=== PATIENT | female | born 1970 | race Caucasian/White ===

== ENCOUNTER → 2016-05-26 15:59 | Outpatient (CLI) | payer BC | END | disposition home or self-care (01) | LOC: D.MAMMO 10:30 | DX: Z12.31 Encounter for screening mammogram for malignant neoplasm of breast (principal) ==

== ENCOUNTER → 2016-06-30 16:53 | Outpatient (CLI) | payer MEDICAID | END | disposition home or self-care (01) | LOC: D.MAMMO 06-21 14:30 → D.US 06-21 15:00 → D.MAMMO 10:30 | DX: R92.8 Other abnormal and inconclusive findings on diagnostic imaging of breast (principal) ==

== ENCOUNTER 2018-04-20 11:24 | Emergency (ER) | payer OTHER ==
[~2018-04-20] VITALS: Ht 180.3 cm; Wt 112.7 kg
[2018-04-20 11:46] VITALS: Ht 180.3 cm; Wt 112.7 kg
[2018-04-20 14:43] LABS: BASOPHILS 0.5 % (0-2); EOSINOPHILS 2.9 % (0-7); HEMATOCRIT 35.4 % (36.0-48.0); HEMOGLOBIN 11.7 g/dL (12-16); IMMATURE GRANULOCYTES 0.2 % (0-5); LYMPHOCYTES 30.5 % (15-50); MCH 28.3 pg (26.0-34.0); MCHC 33.1 g/dL (31.0-37.0); MCV 85.7 fL (80.0-100.0); MONOCYTES 4.9 % (2-11); PLATELET COUNT 187 10x3/uL (130-400); RBC 4.13 10x6/uL (4.00-5.40); RDW 13.7 % (11.5-14.5); WBC 6.5 10x3/uL (4.8-10.8)
[2018-04-20 14:52] LABS: ALBUMIN 3.6 g/dL (3.4-5.0); ALKALINE PHOSPHATASE 76 U/L (46-116); ALT (SGPT) 22 U/L (10-68); BILIRUBIN - TOTAL 0.63 mg/dL (0.2-1.3); CALC OSMOLALITY 287 mosm/kg (275-300); CALCIUM 8.9 mg/dL (8.5-10.1); CARBON DIOXIDE 30.2 mmol/L (21.0-32.0); CHLORIDE - SERUM 103 mmol/L (98-107); CREATININE - SERUM 0.6 mg/dL (0.6-1.3); GLUCOSE 193 mg/dL (74-106); PROTEIN - SERUM 7.2 g/dL (6.4-8.2); SODIUM 143 mmol/L (136-145); UREA NITROGEN 7 mg/dL (7-18); eGFR NON AFRICAN AMERICAN > 90 mL/min (90-120)
[2018-04-20] MEDS ORDERED: BACLOFEN20 M1 PO (16:02)
[2018-04-20] MEDS ORDERED: VOLTAREN75 MG PO (16:02)
[2018-04-20 16:27] VITALS: BP 118/80
== END 2018-04-20 16:44 | disposition home or self-care (01) ==
LOC: D.ER 11:24
PROVIDERS: Family Medicine
DX: M54.2 Cervicalgia (principal)

== ENCOUNTER → 2018-06-13 16:31 | Outpatient (CLI) | payer OTHER ==
[2018-04-20 11:46] VITALS: BMI 34.6
[~2018-06-13 16:31] MED LIST: BACLOFEN20 M1 PO; VOLTAREN75 MG PO
== END | disposition home or self-care (01) ==
LOC: D.MAMMO 10:00
PROVIDERS: ATTEND Emergency Medicine
DX: Z12.31 Encounter for screening mammogram for malignant neoplasm of breast (principal)

== ENCOUNTER → 2018-07-12 08:19 | Outpatient (CLI) | payer OTHER ==
[2018-04-20 11:46] VITALS: BMI 34.6
[~2018-07-12 08:19] MED LIST changes: +ALPHALIPOIC ACID; +ASTAXANTHIN; +BAYER CHEWABLE81 MG PO; +CBD OIL; +GLUCOPHAGE500 MG PO; +VITAMIN B-12500 MCG PO
[2018-08-01 08:47] VITALS: BMI 34.6
== END | disposition home or self-care (01) ==
LOC: D.HCCARDIO 08:19
PROVIDERS: ATTEND Internal Medicine Cardiovascular Disease
DX: I20.9 Angina pectoris, unspecified (principal)

== ENCOUNTER 2018-08-01 07:32 | Outpatient (CLI) | payer OTHER ==
[~2018-08-01] VITALS: Ht 180.3 cm; Wt 112.7 kg
--- NOTE | ~2018-08-01 | HEMODYNAMI ---
PATIENT:DU ZHANG MEDICAL RECORD: [id number] : 66 LOCATION:[facility] ADMISSION DATE: 08/01/18 Generatedon:08/01/201810:54 Patient name: DU ZHANG Patient #: [id number] SSN: D OB: 1970 Date of study: 08/01/2018 Page: Of Hemodynamic Procedure Report Patient Data Patient Demographics Procedure consent was obtained First Name: DU Gender: Female Last Name: VICENTE : 1970 Middle Initial: LORETTA Age: 48 year(s) Patient #: [id number] Race: Unknown Additional ID: [id number] Contact details [address]: [address] [place] [address] [address] State: [place] City: [place] Zip code: [address] Admission Admission Data Admission Date: 08/01/2018 Admission Time: 7:32 Procedure Procedure Types Cath Procedure Diagnostic Procedure LHC LHC w/Coronaries Procedure Description Procedure Date Procedure Date: 08/01/2018 Procedure Start Time: 10:39 Procedure End Time: 10:53 Procedure Staff Name Function Андрей Dong MD Performing Physician Boston Bee RT Monitor Stefania Macedo RT Scrub Ro Zhou RN Nurse Procedure Data Cath Procedure Fluoroscopy Diagnostic fluoroscopy Total fluoroscopy Time: 2.7 time: 2.7 min min Diagnostic fluoroscopy Total fluoroscopy dose: 572 dose: 572 mGy mGy Contrast Material Contrast Material Type Amount (ml) Isovue 300 59 Entry Location Entry Primary Successful Side Size Upsize Upsize Entry Closure Chang ccessful Closure Location (Fr) 1 (Fr) 2 (Fr) Remarks Device Remarks Radial Right 6 Fr Mechanical artery Short Compression Estimated blood loss: 10 ml Diagnostic catheters Device Type Used For End Catheter Placement DIAGNOSTIC Arrington 110cm 5 Procedure Fr catheter ([id number]) DIAGNOSTIC Pigtail 5Fr Procedure catheter ([id number]) Procedure Medications Medication Administration Route Dosage 0.9% NaCl I.V. 100 ml/hr Oxygen etCO2 Nasal cannula 2 l/min Lidocaine 2% added to field 20 Heparin Flush Bag added to field 2 bags (1000units/500ml NS) Radial Cocktail added to field 1 syringe (Verapamil 2mg/Nitro 400mcg/Heparin 1500units) Versed I.V. 2 mg Fentanyl I.V. 50 mcg Fentanyl I.V. 50 mcg Hemodynamics Rest Heart Rate: 63 (bpm) Pressure Samples Time Site Value (mmHg) Purpose Heart Use Rate(bpm) 10:42 LV 138/50,5 Snapshot 56 10:43 AO 77/53(64) Snapshot 83 10:47 LV 113/-4,4 Snapshot 84 10:48 AO 101/54(73) Pullback 84 10:48 LV 115/-6,4 Pullback 84 Gradients Valve Time Site 1 Site 2 Mean SEP/DFP Peak To Heart Use (mmHg) (sec/min) Peak Rate (mmHg) (bpm) Aortic 10:48 LV AO 11 21 14 84 115/-6,4 101/54(73) Calculations Valve P-P Mean Valve Index Valve Source Name Gradient Area Flow (cm2) Aortic 14 11 14 11 Snapshots Pre Cath Intra NCS Post Cath Vital Signs Time Heart Resp SPO2 etCO2 NIBP (mmHg) Rhythm Pain Sedation Rate (ipm) (%) (mmHg) Status Level (bpm) 10:24:36 68 17 100 35 135/76(111) NSR 0 (11) 10(A) , No pain 10:28:54 69 11 100 39.5 136/79(114) NSR 0 (11) 10(A) , No pain 10:33:09 77 15 97 42.5 120/77(92) NSR 0 (11) 10(A) , No pain 10:37:24 80 15 100 43.2 123/74(98) NSR 0 (11) 9(A) , No pain 10:41:38 85 12 100 46.2 119/74(103) NSR 0 (11) 9(A) , No pain 10:45:52 137 18 100 43.2 115/66(82) NSR 0 (11) 9(A) , No pain 10:50:06 80 12 98 43.2 121/76(92) NSR 0 (11) 10(A) , No pain Medications Time Medication Route Dose Verified Delivered Reason Notes E ffectiveness by by 10:23:37 0.9% NaCl I.V. 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 2 mg Андрей Ro for Iker Zhou sedation RN 10:27:11 Fentanyl I.V. 50 mcg Андрей Ro for Iker Zhou sedation RN 10:36:30 Fentanyl I.V. 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 Start room use. 10:22:48 Time tracking: Regular hours (M-F 7:00 - 5:00) 10:22:52 Plan of Care:Hemodynamics will remain stable., Cardiac rhythm will remain stable., Comfort level will be maintained., Respiratory function will remain adequate., Patient/ family verbilizes understanding of procedure., Procedure tolerated without complication., Recovers from procedure without complications.. 10:23:16 Patient received from Pre/Post Procedure Room to [facility] 2 Alert and oriented. Tansferred to table in Supine position. 10:23:17 Warm blankets applied, and sher hugger turned on for patient comfort. 10:23:17 Correct patient and procedure confirmed by team. 10:23:19 Signed procedure consent form obtained from patient. 10:23:20 ECG and BP/O2 sat monitors applied to patient. 10:23:26 Baseline sample Acquired. 10:23:27 Vital chart was started 10:23:29 Rhythm: sinus rhythm 10:23:31 Full Disclosure recording started 10:23:35 H&P Date Dictated: 08/01/2018 Within 30 days and on chart., H&P Addendum completed by physician on day of procedure. (MUST COMPLETE FOR ALL OUTPATIENTS). 10:23:36 Pre-procedure instructions explained to patient. 10:23:37 0.9% NaCl 100 ml/hr I.V. was administered by Ro Zhou RN; used for procedure; 10:23:37 Pre-op teaching completed and patient verbalized understanding. 10:23:38 Family in patients room. 10:23:44 Oxygen 2 l/min etCO2 Nasal cannula was administered by Ro Zhou RN; used for procedure; 10:23:48 Patient NPO since Midnight. 10:23:49 Lidocaine 2% 20ml vial added to field was administered by Андрей Dong MD; for local anesthetic; 10:23:50 Is the patient allergic to Iodine/contrast media? No. 10:23:52 Was the patient premedicated? No 10:23:52 Is patient on blood thinner?Yes 10:23:55 Heparin Flush Bag (1000units/500ml NS) 2 bags added to field was administered by Андрей Dong MD; used for procedure; 10:23:55 ACC The patient was administered the following blood thiners within the last 24 hours: ACCAspirin 10:23:58 Patient diabetic? Yes. 10:23:59 If diabetic: On Metformin? Yes 10:24:01 Radial Cocktail (Verapamil 2mg/Nitro 400mcg/Heparin 1500units) 1 syringe added to field was administered by Андрей Dong MD; used for procedure; 10:24:02 If on Metformin: Last Dose? 07/30/2018 10:24:23 Previous problem with sedation/anesthesia? No ? 10:24:25 Snore? Yes 10:24:26 Sleep apnea? No 10:24:27 Deviated septum? No 10:24:27 Opens mouth fully? Yes 10:24:28 Sticks out tongue? Yes 10:24:30 Airway obstruction? No ? 10:24:32 Dentures? No ? 10:24:35 Pre procedure: right dorsailis pedis pulse 2+ Normal; easily identifiable; not easily obliterated 10:24:37 Pre procedure: left dorsailis pedis pulse 2+ Normal; easily identifiable; not easily obliterated 10:24:39 Patient pain scale 0/10 ?. 10:24:41 Modified Maximilian's test Radial < 7 seconds 10:24:56 IV patent on arrival in right antecubital with 0.9% NaCl at KVO. 10:24:58 Lab results completed and on chart. 10:25:02 Right Radial & Right Groin area was prepped with chlora-prep and draped in sterile fashion 10:25:02 Alarms reviewed by R. N. 10:25:03 Sharps counted by scrub and verified by R.N. 10:25:04 Physician arrived 10:25:05 --------ALL STOP TIME OUT------ 10:25:05 Final Timeout: patient, procedure, and site verified with staff and physician. All members of the team are in agreement. 10:25:07 Right Radial & Right Groin site verified by team. 10:25:10 Maximum allowable Isovue 370 dose 300ml. Physician notified. (300ml for normal creatinines. For patients with creatinine of 1.7 or higher multiply weight(kg) x 5 divided by creatinine.) 10:25:13 Fire Safety Assessment: A--An alcohol-based skin anteseptic being used preoperatively., C--Open oxygen or nitrous oxide is being used., D--An ESU, laser, or fiber-optic light is being used. 10:25:16 Physical assessment completed. ASA score P 2 - A patient with mild systemic disease as per Андрей Dong MD. 10:25:20 Sedation plan: IV Moderate Sedation Medication:Versed, Fentanyl 10:25:23 Use device set Radial Dx or PCI 10:25:24 ACIST Syringe (65837) opened to sterile field. 10:25:24 Medline Cath Pack ([id number]) opened to sterile field. 10:25:25 Bag Decanter (2002) opened to sterile field. 10:25:25 DIAGNOSTIC WIRE .035 260cm J wire (944334) opened to sterile field. 10:25:26 ACIST Hand Control (03773) opened to sterile field. 10:25:26 ACIST Manifold (34829) opened to sterile field. 10:25:27 Tegaderm 4 x 4 (1626W) opened to sterile field. 10:25:27 MBrace Wrist Support ([id number]) opened to sterile field. 10:25:28 NEEDLE Cook 21G 4cm Radial (Y64225) opened to sterile field. 10:25:29 SHEATH 6FR Slender (80-2137) opened to sterile field. 10:27:06 Versed 2 mg I.V. was administered by Ro Zhou RN; for sedation; 10:27:11 Fentanyl 50 mcg I.V. was administered by Ro Zhou RN; for sedation; 10:34:42 Baseline sample Acquired. 10:36:30 Fentanyl 50 mcg I.V. was administered by Ro Zhou RN; for sedation; 10:39:00 Procedure started. 10:39:06 Local anesthetic to right radial artery with Lidocaine 2% by Андрей Dong MD.INITIAL ACCESS ONLY 10:40:35 A 6 Fr Short sheath was inserted into the Right Radial artery 10:41:15 A DIAGNOSTIC Arrington 110cm 5 Fr catheter (707376) was advanced over the wire and used for Procedure. 10:43:32 LV hemodynamics recorded. 10:43:50 LCA angiography performed. 10:44:51 RCA angiography performed. 10:45:57 Catheter removed. 10:46:04 A DIAGNOSTIC Pigtail 5Fr catheter (781718G) was advanced over the wire and used for Procedure. 10:47:57 LV gram done using ZEPEDA 10:48:02 EF : 55 % 10:48:52 Catheter removed. 10:48:58 TR BAND Standard (YLM38QSD) opened to sterile field. 10:49:10 Procedure ended.(Physican Out) 10:49:30 Sheath removed intact; hemostasis achieved with Mechanical Compression to the Right Radial artery. 10:49:40 Fluoroscopy time 02.70 minutes. 10:49:46 Fluoroscopy dose: 572 mGy 10:49:46 Flurop Dose total: 572 10:50:06 Contrast amount:Isovue 300 59ml. 10:50:20 Sharps counted by scrub and verified by R.N. 10:52:34 TR band inflated with 12cc of air. 10:52:36 Insertion/operative site no bleeding no hematoma. 10:52:42 Post right radial artery:stable 10:52:48 Post-procedure physical assessment completed. ASA score P 2 - A patient with mild systemic disease as per Андрей Dong MD. 10:52:53 Post procedure rhythm: sinus rhythm 10:52:56 Estimated blood loss: 10 ml 10:52:58 Patient needs reinforcement of post procedure teaching. 10:52:59 Procedure and supply charges have been captured, reviewed, submitted and are correct. 10:53:01 Vital chart was stopped 10:53:02 See physician's report for complete and final results. 10:53:04 Report given to Pre/Post Procedure Room. 10:53:08 Patient transfered to Pre/Post Procedure Room with Stretcher. 10:53:11 Procedure ended. 10:53:11 Full Disclosure recording stopped 10:53:16 End room use (Document Last) Device Usage Item Name Manufacture Quantity Catalog Hospital Part Current Minimal Lot# / Number Charge Number Stock Stock Serial# Code ACIST Acist 1 36168 358936 815382 005740 20 Syringe Medical (56358) Systems Inc Medline Medline 1 [id number] 038914 54101 542048 5 Cath Pack ([id number]) Bag Microtek 1 2001S 452691 52577 225148 5 Decanter Medical Inc. () DIAGNOSTIC [facility] 1 451425 712268 603256 640306 30 WIRE .035 260cm J wire (779792) ACIST Hand Acist 1 56503 314769 186201 409869 5 Control Medical (15189) Systems Inc ACIST Acist 1 32111 932531 688996 567967 5 Manifold Medical (87248) Systems Inc Tegaderm 4 3M 1 1626W 087223 932687 671304 5 x 4 (1626W) MBrace Advanced 1 140-0250-00 231828 64526 377349 5 Wrist Vascular Support Dynamics ([id number]) NEEDLE Cook Cook Medical 1 W94019 127354 703295 935178 5 21G 4cm Radial (Y94721) SHEATH 6FR Terumo 1 [id number] 625886 827097 440716 5 Slender (80-1060) DIAGNOSTIC Terumo 1 40-2573 074420 881879 588993 5 Arrington 110cm 5 Fr catheter (326990) DIAGNOSTIC Cardinal 1 [id number] 696947 142273 085045 5 Pigtail 5Fr Health catheter (507038Y) TR BAND Terumo 1 [id number] 144516 324483 671395 40 Standard ([id number]) Signature Audit [place] Stage Time Signature Unsigned Intra-Procedure 08/01/2018 Boston Bee 10:53:56 AM RT(R) (CV) Signatures Monitor : Boston Bee RT Signature : Date : Time : [place] [id number] [facility] [place] [address]
[~2018-08-01 07:32] MED LIST changes: -ALPHALIPOIC ACID; -ASTAXANTHIN; -BAYER CHEWABLE81 MG PO; -CBD OIL; -GLUCOPHAGE500 MG PO; -VITAMIN B-12500 MCG PO
[2018-08-01] MEDS ORDERED: GLUCOPHAGE500 MG PO (08:29)
[2018-08-01] MEDS ORDERED: BAYER CHEWABLE81 MG PO (08:30)
[2018-08-01] MEDS ORDERED: VITAMIN B-12500 MCG PO (08:30)
[2018-08-01] MEDS ORDERED: ALPHALIPOIC ACID (08:31)
[2018-08-01] MEDS ORDERED: CBD OIL (08:31)
[2018-08-01] MEDS ORDERED: ASTAXANTHIN (08:32)
[2018-08-01 08:47] VITALS: BP 118/59; Ht 180.3 cm; Wt 112.7 kg
[2018-08-01 08:59] LABS: BASOPHILS 0.5 % (0-2); HEMATOCRIT 32.6 % (36.0-48.0); HEMOGLOBIN 10.8 g/dL (12-16); IMMATURE GRANULOCYTES 0.4 % (0-5); LYMPHOCYTES 24.8 % (15-50); MCH 27.8 pg (26.0-34.0); MCHC 33.1 g/dL (31.0-37.0); MEAN PLATELET VOLUME 10.2 fL (7.4-10.4); MONOCYTES 7.2 % (2-11); NEUTROPHILS 62.1 % (40-80); PLATELET COUNT 189 10x3/uL (130-400); RBC 3.88 10x6/uL (4.00-5.40); RDW 13.6 % (11.5-14.5); WBC 7.6 10x3/uL (4.8-10.8)
[2018-08-01 09:04] LABS: CALC OSMOLALITY 283 mosm/kg (275-300); CALCIUM 8.8 mg/dL (8.5-10.1); CARBON DIOXIDE 27.8 mmol/L (21.0-32.0); CHLORIDE - SERUM 101 mmol/L (98-107); CREATININE - SERUM 0.7 mg/dL (0.6-1.3); POTASSIUM - SERUM 4.1 mmol/L (3.5-5.1); SODIUM 136 mmol/L (136-145); UREA NITROGEN 18 mg/dL (7-18); eGFR NON AFRICAN AMERICAN > 90 mL/min (90-120)
[2018-08-01 09:06] LABS: GLUCOSE 273 mg/dL (74-106)
--- NOTE | 2018-08-01 10:59 | NUR ---
PT ARRIVED BY STRETCHER. PLACED ON MONITORS. ASSESSMENT COMPLETED. VSS. FAMILY AT BEDSIDE. DR. KC ROUNDED AND SPOKE WITH PT'S FAMILY.
--- NOTE | 2018-08-01 11:15 | NUR ---
RIGHT RADIAL TR BAND IN PLACE. NO BLEEDING/HEMATOMA NOTED. VSS AT THIS TIME. FAMILY AT BEDSIDE. CALL LIGHT WITHIN REACH.
--- NOTE | 2018-08-01 11:45 | NUR ---
PT SITTING UP VISITING WITH FAMILY. NO NEEDS AT THIS TIME. CALL LIGHT WITHIN REACH. RIGHT RADIAL TR BAND IN PLACE. NO BLEEDING/HEMATOMA NOTED.
--- NOTE | 2018-08-01 12:12 | NUR ---
3cc OF AIR REMOVED FROM TR BAND. PT TOLERATING WELL. VSS. FAMILY AT BEDSIDE. CALL LIGHT WITHIN REACH.
--- NOTE | 2018-08-01 12:38 | NUR ---
3cc OF AIR REMOVED FROM TR BAND. PT TOLERATED WELL. VSS. FAMILY AT BEDSIDE.
--- NOTE | 2018-08-01 13:00 | NUR ---
3cc OF AIR REMOVED FROM TR BAND. NO BLEEDING/HEMATOMA NOTED. VSS. RIGHT AC PIV D/C'D WITH CATH TIP INTACT. PT TOLERATED WELL. PT INSTRUCTED TO GET UP AND DRESSED. THEY STATE THEY DO NOT NEED ASSISTANCE IN GETTING DRESSED. CALL LIGHT WITHIN REACH AND PT INSTRUCTED TO CALL IF THEY NEED ASSISTANCE.
--- NOTE | 2018-08-01 13:15 | NUR ---
TR BAND REMOVED. DRESSING APPLIED. NO BLEEDING/HEMATOMA NOTED. RIGHT WRIST BRACE IN PLACE. PT INSTRUCTED TO KEEP ON FOR 2 HOURS AFTER ARRIVAL HOME. SHE VOICED UNDERSTANDING. DISCUSSED DISCHARGE INSTRUCTIONS WITH PT AND PT'S FAMILY. THEY VOICED UNDERSTANDING.
--- NOTE | 2018-08-01 13:30 | NUR ---
PT TAKEN OUT TO VEHICLE BY WHEELCHAIR. NO S/S OF DISTRESS NOTED. ALL BELONGINGS AND PAPERWORK IN HAND.
== END 2018-08-01 13:30 | disposition home or self-care (01) ==
LOC: D.CATH 07:32
PROVIDERS: ATTEND Internal Medicine Cardiovascular Disease
DX: I20.9 Angina pectoris, unspecified (principal); R94.30 Abnormal result of cardiovascular function study, unspecified; Z01.812 Encounter for preprocedural laboratory examination

== ENCOUNTER → 2018-08-09 13:12 | Outpatient (CLI) | payer OTHER ==
[2018-08-01 08:47] VITALS: BMI 34.6
[~2018-08-09 13:12] MED LIST changes: +ALPHALIPOIC ACID; +ASTAXANTHIN; +BAYER CHEWABLE81 MG PO; +CBD OIL; +GLUCOPHAGE500 MG PO; +VITAMIN B-12500 MCG PO
== END | disposition home or self-care (01) ==
LOC: D.HCCARDIO 13:12
PROVIDERS: ATTEND Internal Medicine Cardiovascular Disease
DX: R06.02 Shortness of breath (principal)

== ENCOUNTER 2020-07-23 13:00 | Outpatient (CLI) | payer OTHER ==
[2018-08-01 08:47] VITALS: BMI 34.6
== END 2020-07-23 23:59 | disposition home or self-care (01) ==
LOC: D.MAMMO 13:00
PROVIDERS: ATTEND Emergency Medicine
DX: Z12.31 Encounter for screening mammogram for malignant neoplasm of breast (principal)